=== PATIENT | male | born 1985 | race Caucasian/White ===

== ENCOUNTER → 2018-05-17 | Outpatient (CLI) | payer OTHER ==
--- NOTE | 2018-05-17 09:10 | XR ---
EXAMINATION TYPE: XR knee complete LT DATE OF EXAM: 05/17/2018 COMPARISON: None HISTORY: Pain chronic TECHNIQUE: Three-view left knee FINDINGS: No acute fractures are evident. No joint effusion is evident. Joint spaces are preserved. Follow-up exam can be performed 7-10 days from acute trauma for continued pain. IMPRESSION: 1. Normal three-view left knee.
== END ==
LOC: RADXRYALE 08:31
PROVIDERS: ATTEND Family Medicine
DX: M25.562 Pain in left knee (principal)

== ENCOUNTER → 2018-05-25 | Outpatient (CLI) | payer OTHER ==
--- NOTE | 2018-05-25 21:21 | MR ---
EXAMINATION TYPE: MR knee LT wo con DATE OF EXAM: 05/25/2018 COMPARISON: Left knee x-ray May 17, 2018. HISTORY: Lt knee pain and locking sensation TECHNIQUE: Multiplanar, multisequence images of the knee is performed without IV contrast. FINDINGS: MEDIAL MENISCUS: Anterior and posterior horns are intact without tear. LATERAL MENISCUS: Anterior and posterior horns are intact without tear. CRUCIATE LIGAMENTS: The anterior and posterior cruciate ligaments are intact and unremarkable. COLLATERAL LIGAMENTS: The medial collateral ligament and lateral collateral ligament complex are inta ct and unremarkable. EXTENSOR MECHANISM: Visualized quadriceps and patellar tendons are intact. EFFUSION: No significant suprapatellar joint effusion. POPLITEAL CYST: No popliteal/nesbitt cyst. TRICOMPARTMENT SPACES: Tricompartment joint spaces are preserved. No significant spurring is seen. CARTILAGE: No significant chondral malacia patella is noted. Tricompartment articular cartilage is ma intained. BONE MARROW SIGNAL: In the lateral aspect proximal tibial metaphysis there is a horizontal area of di minished T1 and increased T2 signal without surrounding edema could reflect old nondisplaced incomple te fracture. There is linear and round area of diminished T1 and increased T2 signal in the distal lateral femoral metaphysis corresponding to subtle lucent area favoring subchondral cystic change and/or other nonag gressive etiology with some cortical extension noted.. OTHER: No additional significant abnormality is appreciated. IMPRESSION: No meniscal or ligamentous tear is seen. Osseous lesions as detailed above.
== END | disposition home or self-care (01) ==
LOC: RADMRIMAIN 18:23
PROVIDERS: ATTEND Family Medicine
DX: M89.9 Disorder of bone, unspecified (principal)

== ENCOUNTER → 2020-03-11 | Outpatient (CLI) | payer OTHER ==
--- NOTE | 2020-03-11 09:01 | XR ---
EXAMINATION TYPE: XR knee complete RT DATE OF EXAM: 03/11/2020 CLINICAL HISTORY: Pain for one week. TECHNIQUE: Three views of the right knee are obtained. COMPARISON: None. FINDINGS: There is no acute fracture/dislocation evident in right knee. The tri-compartment joint s paces appear within normal limits. A fabella is present. The overlying soft tissue appears unremarka ble. IMPRESSION: As above.
== END | disposition home or self-care (01) ==
LOC: RADXRYALE 08:34
PROVIDERS: ATTEND Physician Assistant Medical
DX: M25.561 Pain in right knee (principal)

== ENCOUNTER → 2020-05-14 | Outpatient (CLI) | payer OTHER ==
--- NOTE | 2020-05-14 10:37 | XR ---
EXAMINATION TYPE: XR femur RT DATE OF EXAM: 05/14/2020 COMPARISON: NONE HISTORY: 34-year-old male right leg pain, right hip pain. TECHNIQUE: 2 views FINDINGS: No sizable knee joint effusion. Knee and hip articulations appear grossly intact. No perios titis or osteolysis. No acute fracture seen. IMPRESSION: No acute osseous abnormality seen of the right femur.
== END | disposition home or self-care (01) ==
LOC: RADXRYALE 10:00
PROVIDERS: ATTEND Physician Assistant Medical
DX: M79.604 Pain in right leg (principal)

== ENCOUNTER → 2021-03-18 | Outpatient (CLI) | payer OTHER ==
--- NOTE | 2021-03-18 15:50 | XR ---
EXAMINATION TYPE: XR shoulder complete BILAT DATE OF EXAM: 03/18/2021 COMPARISON: NONE HISTORY: 35-year-old male chronic generalized bilateral shoulder pain. [id number], [id number] [facility] SHLD PAIN TECHNIQUE: 3 views each side FINDINGS: On the left, there is moderate degenerative joint space narrowing at the AC joint with marginal spurr ing. Subacromial space is preserved on both sides. No tendinous or bursal calcifications. No acute fracture, subluxation, dislocation seen. There is smooth delineation to the greater tuberosi ties on both sides. IMPRESSION: 1. Moderate left AC joint OA. 2. Otherwise, no acute osseous abnormality seen on either side.
== END | disposition home or self-care (01) ==
LOC: RADXRYALE 15:06
PROVIDERS: ATTEND Physician Assistant
DX: M19.012 Primary osteoarthritis, left shoulder (principal)

== ENCOUNTER → 2021-12-03 | Outpatient (CLI) | payer OTHER ==
--- NOTE | 2021-12-03 16:36 | XR ---
EXAMINATION TYPE: XR foot complete LT DATE OF EXAM: 12/03/2021 4:30 PM INDICATION: Patient age:Male; 36 years old; Reason for study: [id number] LT FOOT PAIN; [facility]. COMPARISON: None TECHNIQUE: The left foot was examined in the AP, oblique, and lateral projections. FINDINGS: No evidence of any acute osseous pathology. No evidence of soft tissue swelling. Joints are preserve d. Mild hallux valgus. IMPRESSION: 1. No evidence of acute fracture or evidence for acute process involving the area of patient's clini neeraj concern. 2. Mild hallux valgus
== END | disposition home or self-care (01) ==
LOC: RADXRYALE 16:07
PROVIDERS: ATTEND Physician Assistant
DX: M20.10 Hallux valgus (acquired), unspecified foot (principal)

== ENCOUNTER → 2022-04-23 | Outpatient (CLI) | payer OTHER ==
--- NOTE | 2022-04-23 10:58 | XR ---
EXAMINATION TYPE: XR knee complete LT DATE OF EXAM: 04/23/2022 9:09 AM INDICATION: Patient age:Male; 36 years old; Reason for study: [id number] LT KNEE PAIN; [facility]. COMPARISON: None. TECHNIQUE: The Left knee(s) was examined in Frontal, lateral and oblique projections. FINDINGS: No evidence of any acute osseous pathology, joint space narrowing, soft tissue swelling, or joint effusion is noted. Fabella is present. IMPRESSION: No acute osseous pathology.
== END | disposition home or self-care (01) ==
LOC: RADXRYALE 08:57
PROVIDERS: ATTEND Physician Assistant
DX: M25.562 Pain in left knee (principal)

== ENCOUNTER → 2022-12-21 | Outpatient (CLI) | payer OTHER ==
--- NOTE | 2022-12-29 20:35 | MR ---
EXAMINATION TYPE: MR knee LT wo con DATE OF EXAM: 12/21/2022 COMPARISON: 05/25/2018 HISTORY: Left knee pain TECHNIQUE: Multiplanar, multisequence imaging of the left knee is performed without IV contrast. FINDINGS: There is a persistent small collection of small cortical intraosseous cysts in the proximal and media l aspect of the medial femoral condyle near the attachment of the medial meniscus. This was seen prev iously and is stable. There has been interval development of a few similar-appearing cystic lesions i n the subcortical periarticular aspect of the proximal lateral tibial plateau which was not clearly p resent on the prior study. There is a tiny joint effusion. The articular cartilages are normal in thickness and signal intensity and there is no significant ost eoarthritic change. The cruciate and collateral ligaments are intact. There is no meniscal tear or injury. Periarticular soft tissues are unremarkable. IMPRESSION: 1. Small cluster of bony cystic lesions medial femoral condyle proximal lateral tibia as described. C linical significance is uncertain. There has been progression in these findings tibia when compared t o previous. 2. No osteophytic change of the knee. 3. Small joint effusion. 4. No ligamentous or meniscal injury.
== END | disposition home or self-care (01) ==
LOC: RADMRIMAIN 16:00
PROVIDERS: ATTEND Family Medicine
DX: M25.562 Pain in left knee (principal); M85.661 Other cyst of bone, right lower leg

== ENCOUNTER 2024-09-21 21:59 | Emergency (ER) | payer OTHER ==
[2024-09-21 22:06] VITALS: RESP 18
--- NOTE | 2024-09-21 22:20 | ED ---
Wound/Laceration HPI - General Chief Complaint: Wound/Laceration Stated Complaint: hand laceration Time Seen by Provider: 09/21/24 22:20 Source: patient, family, RN notes reviewed Mode of arrival: ambulatory - History of Present Illness Initial Comments: 38-year-old male presented ER for evaluation of laceration. 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 He attempted to pry the lid off with his fingers and accidentally cut his right fourth digit. He states he is actively bleeding but denies any limited range of motion or paresthesias. Tetanus status unknown. No blood thinners. No other injuries. - Related Data Allergies Allergy/AdvReac Type Severity Reaction Status Date / Time No Known Allergies Allergy Verified 09/21/24 22:06 Review of Systems ROS Statement: Those systems with pertinent positive or pertinent negative responses have been documented in the HPI. ROS Other: All systems not noted in ROS Statement are negative. Past Medical History Past Medical History: No Reported History History of Any Multi-Drug Resistant Organisms: None Reported Past Surgical History: No Surgical Hx Reported Past Psychological History: No Psychological Hx Reported Smoking Status: Never smoker Past Alcohol Use History: None Reported Past Drug Use History: None Reported General Exam Limitations: no limitations General appearance: alert, in no apparent distress Respiratory exam: Present: normal lung sounds bilaterally. Absent: respiratory distress, wheezes, rales, rhonchi, stridor Cardiovascular Exam: Present: regular rate, normal rhythm, normal heart sounds. Absent: systolic murmur, diastolic murmur, rubs, gallop, clicks Extremities exam: Present: normal inspection, full ROM, normal capillary refill (2+ right radial pulse). Absent: tenderness, pedal edema, joint swelling, calf tenderness Neurological exam: Present: alert, oriented X3, CN II-XII intact Skin exam: Present: warm, dry, normal color, other (3cm laceration to right 4th digit. moderate active bleeding) Course Vital Signs 09/21/24 09/21/24 22:04 23:51 Temperature 98.9 F 98.3 F Pulse Rate 128 H 100 Respiratory 18 18 Rate Blood Pressure 172/89 145/79 O2 Sat by Pulse 98 99 Oximetry Procedures - Laceration Laceration #1 Consent Obtained: verbal consent Indication: laceration Site: upper extremity Size (cm): 3 Description: linear Anesthetic Used: lidocaine 1%, without epi Anesthesia Technique: nerve block Amount (mls): 4 Pre-repair: wound explored, irrigated extensively Type of Sutures: nylon Size of Sutures: 5-0 Number of Sutures: 6 Technique: simple, interrupted Patient Tolerated Procedure: well, no complications Medical Decision Making - Medical Decision Making Was pt. sent in by a medical professional or institution ([facility] Coelho, [employer], urgent care, hospital, or senior care...) When possible be specific @ -No Did you speak to anyone other than the patient for history (EMS, parent, family, police, friend...)? What history was obtained from this source @ -No Did you review nursing and triage notes (agree or disagree)? Why? @ -I reviewed and agree with nursing and triage notes Were old charts reviewed (outside hosp., previous admission, EMS record, old EKG, old radiological studies, urgent care reports/EKG's, senior care records)? Report findings @ -No old charts were reviewed Differential Diagnosis (chest pain, altered mental status, abdominal pain women, abdominal pain men, vaginal bleeding, weakness, fever, dyspnea, syncope, headache, dizziness, GI bleed, back pain, seizure, CVA, palpatations, mental health, musculoskeletal)? @ -Laceration, abrasion, contusion, avulsion, foreign body this list is not meant to be all-inclusive EKG interpreted by me (3pts min.). @ -None done X-rays interpreted by me (1pt min.). @ -Right hand x-ray interpreted me negative for acute fractures or dislocations. No radiopaque foreign bodies. CT interpreted by me (1pt min.). @ -None done U/S interpreted by me (1pt. min.). @ -None done What testing was considered but not performed or refused? (CT, X-rays, U/S, labs)? Why? @ -None What meds were considered but not given or refused? Why? @ -None Did you discuss the management of the patient with other professionals (professionals i.e. [facility] Coelho, [employer], lab, RT, psych nurse, protective services social worker, christmas tree farm worker, teacher, president and chief operating officer, top case assembler)? Give summary @ -No Was smoking cessation discussed for >3mins.? @ -No Was critical care preformed (if so, how long)? @ -No Were there social determinants of health that impacted care today? How? (Homelessness, low income, unemployed, alcoholism, drug addiction, transportation, low edu. Level, literacy, decrease access to med. care, senior care, rehab)? @ -No Was there de-escalation of care discussed even if they declined (Discuss DNR or withdrawal of care, Hospice)? DNR status @ -No What co-morbidities impacted this encounter? (DM, HTN, Smoking, COPD, CAD, Cancer, CVA, ARF, Chemo, Hep., AIDS, mental health diagnosis, sleep apnea, morbid obesity)? @ -None Was patient admitted / discharged? Hospital course, mention meds given and route, prescriptions, significant lab abnormalities, going to OR and other pertinent info. @ -Discharge. 38-year-old male presented the ER for evaluation of laceration. Vitals stable. Exam remarkable for a 3 cm moderately bleeding at laceration to right fourth digit. Patient has full range of motion of fourth digit without paresthesias. Patient is neurovascularly intact. X-rays obtained negative for acute process. Tetanus updated. Wound irrigated with iodine and sterile water prior to closure. Laceration closed, see note above. I advised suture removal in 10 to 14 days. Suture care and return parameters discussed. Patient discharged stable condition with follow-up to PCP. Patient verbally expressed understanding of care plan. Case discussed with ED attending, Dr. Mckeon. Undiagnosed new problem with uncertain prognosis? @ -No Drug Therapy requiring intensive monitoring for toxicity (Heparin, Nitro, Insulin, Cardizem)? @ -No Were any procedures done? @ -Yes Diagnosis/symptom? @ -Laceration Acute, or Chronic, or Acute on Chronic? @ -Acute Uncomplicated (without systemic symptoms) or Complicated (systemic symptoms)? @ -Uncomplicated Side effects of treatment? @ -No Exacerbation, Progression, or Severe Exacerbation? @ -No Poses a threat to life or bodily function? How? (Chest pain, USA, DC, pneumonia, PE, COPD, DKA, ARF, appy, cholecystitis, CVA, Diverticulitis, Homicidal, Suicidal, threat to staff... and all critical care pts) @ -No - Radiology Data Radiology results: report reviewed, image reviewed Disposition Clinical Impression: Laceration Disposition: HOME SELF-CARE Condition: Stable Additional Instructions: Have suture removed in 10 to 14 days. Keep area clean and dry monitor for signs fact include surrounding redness, drainage or increasing pain or swelling. Follow-up with PCP. Return to the ER for any new or worsening concerns. Is patient prescribed a controlled substance at d/c from ED?: No Referrals: Hilario Ocasio DO [Primary Care Provider] - 1-2 days Time of Disposition: 23:37
[2024-09-21] MEDS: LIDOCAINE 1% INJ 10MG/ML (20 ML MDV) SQ ONE (23:07)
[2024-09-21] MEDS: DIPH,PERTUS(ACELL)TETVAC-LF 0.5 ML VIAL IM ONE (23:07)
[2024-09-21 23:52] VITALS: BP 145/79; PULSE 100; TEMP 98.3
--- NOTE | 2024-09-22 01:46 | XR ---
EXAM: XR Right Hand Complete, 3 or More Views CLINICAL HISTORY: ITS.REASON XR Reason: laceartion 3rd digit TECHNIQUE: Frontal, lateral and oblique views of the right hand. COMPARISON: No relevant prior studies available. FINDINGS: Bones/joints: Unremarkable. No acute fracture. No dislocation. Soft tissues: Laceration and swelling of the fourth finger at the level of the middle phalanx. No radiopaque foreign body. IMPRESSION: No acute osseous abnormality.
== END 2024-09-21 23:51 | disposition home or self-care (01) ==
LOC: EC 21:59
DX: S61.214A Laceration without foreign body of right ring finger without damage to nail, initial encounter (principal); Z23 Encounter for immunization; W26.8XXA Contact with other sharp object(s), not elsewhere classified, initial encounter
CPT/HCPCS: 73130; 90715; 99283; 12002; 90471; J2003